=== PATIENT | male | born 1995 | race Caucasian/White ===

== ENCOUNTER 2020-05-28 03:12 | Emergency (ER) | payer OTHER ==
[~2020-05-28 03:12] MED LIST: DEBROX15 ML AU
[2020-05-28 03:59] LABS: BASOPHIL 0.2 % (0-2); HCT 41.5 % (42.0-52.0); HGB 13.6 g/dl (13.2-18.0); LYMPHOCYTE 33.3 % (15-48); MCH 28.1 pg (25.0-31.0); MCHC 32.8 g/dL (32.0-36.0); MCV 85.7 fL (78.0-100.0); MONOCYTE 8.8 % (0-12); MPV 9.7 fL (6.0-9.5); NEUTROPHIL 56.3 % (41-80); NRBC 0; PLT 207 K/uL (150-400); RBC 4.84 M/uL (4.70-6.00); RDW 13.6 % (11.5-14.0)
[2020-05-28 04:17] LABS: ALBUMIN 3.8 g/dL (3.4-5.0); BILIRUBIN - TOTAL 0.2 mg/dL (0.2-1.0); BUN/CREAT RATIO (CALC) 16.7 RATIO; CREATININE 0.78 mg/dL (0.67-1.17); GLOBULIN (CALCULATION) 3.6 g/dL; POTASSIUM 3.9 mmol/L (3.5-5.1); TOTAL PROTEIN 7.4 g/dL (6.4-8.2)
[2020-05-28 05:20] LABS: BILIRUBIN NEGATIVE (NEGATIVE); BLOOD NEGATIVE Ery/uL (NEGATIVE); CLARITY HAZY (CLEAR); COLOR YELLOW (YELLOW); GLUCOSE (U) NORMAL (NORMAL); LEUKOCYTES 1+ Leu/uL (NEGATIVE); NITRITE NEGATIVE (NEGATIVE); PROTEIN TRACE (LOW) mg/dL (NEGATIVE); SPECIFIC GRAVITY 1.025 (1.001-1.030); UROBILINOGEN 0.2 mg/dL (0.2-1.0); pH 6.5 (5.0-9.0)
[2020-05-28] MEDS ORDERED: CIPRO500 MG PO (05:44)
[2020-05-28] MEDS ORDERED: METRONIDAZOLE500 MG PO (05:44)
== END 2020-05-28 06:00 | disposition home or self-care (01) ==
LOC: FER 03:12
PROVIDERS: Student in an Organized Health Care Education/Training Program
DX: K52.9 Noninfective gastroenteritis and colitis, unspecified (principal); N28.89 Other specified disorders of kidney and ureter; N39.0 Urinary tract infection, site not specified; F17.290 Nicotine dependence, other tobacco product, uncomplicated
CPT/HCPCS: 36415; 74022; 80053; 81001; 85025; J0500; J7030; Q9967

== ENCOUNTER 2021-06-10 23:18 | Emergency (ER) | payer OTHER ==
[~2021-06-10 23:18] MED LIST changes: +CIPRO500 MG PO; +METRONIDAZOLE500 MG PO
[2021-06-11 00:38] LABS: AMPHETAMINES NEGATIVE (NEGATIVE); BARBITURATES NEGATIVE (NEGATIVE); ECSTASY (MDMA) NEGATIVE (NEGATIVE); MARIJUANA (THC) NEGATIVE (NEGATIVE); METHADONE NEGATIVE (NEGATIVE); OPIATES NEGATIVE (NEGATIVE); OXYCODONE NEGATIVE (NEGATIVE)
[2021-06-11 00:44] LABS: HCT 45.3 % (42.0-52.0); HGB 15.1 g/dl (13.2-18.0); MCH 27.8 pg (25.0-31.0); MCHC 33.3 g/dL (32.0-36.0); MCV 83.4 fL (78.0-100.0); MPV 9.8 fL (6.0-9.5); RBC 5.43 M/uL (4.70-6.00); WBC 12.8 K/uL (4.0-10.5)
[2021-06-11 00:57] LABS: BUN 10 mg/dL (7-18); BUN/CREAT RATIO (CALC) 12.3 RATIO; CHLORIDE 106 mmol/L (98-107); CO2 (BICARBONATE) 27 mmol/L (21-32); CREATININE 0.81 mg/dL (0.67-1.17); GLUCOSE 94 mg/dL (74-106); POTASSIUM 3.9 mmol/L (3.5-5.1)
[2021-06-11 00:58] LABS: ACETAMINOPHEN (TYLENOL) <2.0 ug/mL (10.0-30.0)
== END 2021-06-11 01:28 | disposition left against medical advice (07) ==
LOC: FER 23:18
PROVIDERS: Emergency Medicine
DX: R45.851 Suicidal ideations (principal); F17.210 Nicotine dependence, cigarettes, uncomplicated; Z53.29 Procedure and treatment not carried out because of patient's decision for other reasons; Z20.822 Contact with and (suspected) exposure to COVID-19
CPT/HCPCS: 36415; 80048; 80305; 99284; G0480; J0696; U0002

== ENCOUNTER 2021-12-18 15:26 | Emergency (ER) | payer OTHER ==
[2021-12-18 16:30] LABS: BASOPHIL 0.2 % (0-2); EOSINOPHIL 1.2 % (0-5); HCT 44.1 % (42.0-52.0); HGB 14.9 g/dl (13.2-18.0); LYMPHOCYTE 23.9 % (15-48); MCH 28.2 pg (25.0-31.0); MCHC 33.8 g/dL (32.0-36.0); MCV 83.5 fL (78.0-100.0); MONOCYTE 6.5 % (0-12); MPV 9.9 fL (6.0-9.5); NEUTROPHIL 67.7 % (41-80); NRBC 0; PLT 236 K/uL (150-400); RBC 5.28 M/uL (4.70-6.00); RDW 14.1 % (11.5-14.0); WBC 14.6 K/uL (4.0-10.5)
[2021-12-18 16:55] LABS: BILIRUBIN NEGATIVE (NEGATIVE); BLOOD NEGATIVE Ery/uL (NEGATIVE); CLARITY CLEAR (CLEAR); COLOR YELLOW (YELLOW); GLUCOSE (U) NORMAL (NORMAL); LEUKOCYTES NEGATIVE Leu/uL (NEGATIVE); NITRITE NEGATIVE (NEGATIVE); PROTEIN NEGATIVE (NEGATIVE); SPECIFIC GRAVITY <=1.005 (1.001-1.030); UROBILINOGEN 0.2 mg/dL (0.2-1.0)
[2021-12-18 16:59] LABS: ALBUMIN 4.3 g/dL (3.4-5.0); ALKALINE PHOSHATASE 141 U/L (46-116); ALT 51 U/L (16-63); AST 25 U/L (15-37); BILIRUBIN - TOTAL 0.2 mg/dL (0.2-1.0); BUN 10 mg/dL (7-18); BUN/CREAT RATIO (CALC) 11.1 RATIO; CHLORIDE 104 mmol/L (98-107); CO2 (BICARBONATE) 25 mmol/L (21-32); GLOBULIN (CALCULATION) 3.7 g/dL; GLUCOSE 103 mg/dL (74-106); POTASSIUM 3.5 mmol/L (3.5-5.1)
[2021-12-18 17:02] LABS: ACETAMINOPHEN (TYLENOL) < 2.0 ug/mL (10.0-30.0)
[2021-12-18 17:07] LABS: AMPHETAMINES NEGATIVE (NEGATIVE); BARBITURATES NEGATIVE (NEGATIVE); ECSTASY (MDMA) NEGATIVE (NEGATIVE); MARIJUANA (THC) NEGATIVE (NEGATIVE); METHADONE NEGATIVE (NEGATIVE); OPIATES NEGATIVE (NEGATIVE); OXYCODONE NEGATIVE (NEGATIVE)
== END 2021-12-18 21:15 | disposition other institution (70) ==
LOC: FER 15:26
PROVIDERS: Emergency Medicine
DX: T39.012A Poisoning by aspirin, intentional self-harm, initial encounter (principal); U07.1 COVID-19; F17.210 Nicotine dependence, cigarettes, uncomplicated; Z88.0 Allergy status to penicillin
CPT/HCPCS: 36415; 36600; 71045; 80053; 80305; 81001; 82803; 85025; 93005; G0480; J2060; J7030; U0002